=== PATIENT | male | born 1990 | race Two or more races ===

== ENCOUNTER 2019-03-30 12:44 | Emergency (ER) | payer BC ==
[2019-03-30] MEDS ORDERED: Bacitracin Oint 1 GM U/D Packet TOP ONE (13:06)
--- NOTE | 2019-03-30 13:09 | EDM.PDOC ---
ED HPI GENERAL MEDICAL PROBLEM - General Chief Complaint: Lower Extremity Injury/Pain Stated Complaint: INJURED RT FOOT Time Seen by Provider: 03/30/19 12:46 Source of Information: Reports: Patient History Limitations: Reports: No Limitations - History of Present Illness INITIAL COMMENTS - FREE TEXT/NARRATIVE: HISTORY AND PHYSICAL: History of present illness: Patient is a 28-year-old male who presents to the emergency room with complaints of right great toe pain after crush injury. He states a 45 pound weight had landed on his great toe resulting in soft tissue swelling and bleeding from the corner of the nail bed. Tetanus has been updated within the last 5 years. He denies any other bodily injury. Offers no systemic complaints. Review of systems: As per history of present illness and below otherwise all systems reviewed and negative. Past medical history: As per history of present illness and as reviewed below otherwise noncontributory. Surgical history: As per history of present illness and as reviewed below otherwise noncontributory. Social history: See social history for further information Family history: As per history of present illness and as reviewed below otherwise noncontributory. Physical exam: General: Well-developed and well-nourished 28-year-old male. Alert and oriented. Nontoxic-appearing and in no acute distress. HEENT: Atraumatic, normocephalic, pupils equal and reactive bilaterally, negative for conjunctival pallor or scleral icterus, mucous membranes moist, trachea midline. No drooling or trismus noted. No meningeal signs. No hot potato voice noted. Lungs: Clear to auscultation, breath sounds equal bilaterally. Heart: S1S2, regular rate and rhythm without overt murmur Abdomen: Soft, nondistended, nontender. Negative for masses or hepatosplenomegaly. Negative for costovertebral tenderness. Skin: See EXTREMITIES for details. Otherwise remaining skin is intact, warm, dry. No lesions or rashes noted. Extremities: Crush injury of the right great toe with minimal bleeding to corner of the nailbed. Nailbed is intact. He moves all extremities per self without difficulty or deficits. No ankle pain or tenderness. Neurovascular unremarkable. Neuro: Awake, alert, oriented. Cranial nerves II through XII unremarkable. Cerebellum unremarkable. Motor and sensory unremarkable throughout. Exam nonfocal. Notes: Wound care was provided. No area requiring sutures at this time. X-ray shows a tuft fracture of the distal first toe with soft tissue swelling. Shoe and crutches were given with education. We discussed the need for follow-up with podiatry. Supportive care measures were reviewed and discussed. Voices understanding and is agreeable to plan of care. Denies any further questions or concerns at this time. Diagnostics: X-ray Therapeutics: Wound care, bacitracin Post-Op shoe, crutches Prescription: None Impression: Tuft fracture right great toe Plan: 1. Rest, ice, elevate the affected extremity. Please wear the post-op shoe and use crutches as directed. 2. Tylenol and/or Ibuprofen as needed for pain management. [place] for moderate to severe pain. This medication may cause drowsiness so do not take it while driving or needing to be functioning at work. 3. Follow up with the Orthopedic provider or real estate professional as we discussed. Return to the ED as needed and as discussed. Definitive disposition and diagnosis as appropriate pending reevaluation and review of above. Right Foot Pain Score (Numeric/FACES): 4 - Related Data Allergies Allergy/AdvReac Type Severity Reaction Status Date / Time amoxicillin Allergy Rash Verified 03/30/19 12:59 Penicillins Allergy Rash Verified 03/30/19 12:59 Home Meds: Home Meds Acetaminophen/HYDROcodone [[place] 325-5 MG] 1 dose PO Q4H #20 tablet 03/30/19 [Rx ] Past Medical History - Past Health History Medical/Surgical History: Denies Medical/Surgical History - Infectious Disease History Infectious Disease History: Reports: Chicken Pox Social & Family History - Family History Family Medical History: Noncontributory - Tobacco Use Smoking Status *Q: Never Smoker - Caffeine Use Caffeine Use: Reports: Soda - Recreational Drug Use Recreational Drug Use: No Review of Systems - Review of Systems Review Of Systems: Comprehensive ROS is negative, except as noted in HPI. ED EXAM, GENERAL - Physical Exam Exam: See Below (See dictation) Course - Vital Signs Last Recorded V/S: Last Vital Signs Temp 96.5 F L 03/30/19 12:59 Pulse 78 03/30/19 12:59 Resp 17 03/30/19 12:59 BP 123/82 03/30/19 12:59 Pulse Ox 96 03/30/19 12:59 - Orders/Labs/Meds Orders: Active Orders 24 hr Category Date Time Status Communication Order [RC] STAT Care 03/30/19 13:06 Active DME for Discharge [COMM] Stat Oth 03/30/19 14:13 Ordered Meds: Medications Discontinued Medications Generic Name Dose Route Start Last Admin Trade Name Corby PRN Reason Stop Dose Admin Bacitracin 1 dose 03/30/19 13:06 Bacitracin Oint 1 Gm TOP 03/30/19 13:07 ONETIME ONE Departure - Departure Time of Disposition: 14:18 Disposition: Home, Self-Care 01 Clinical Impression: Fractured great toe Qualifiers: Encounter type: initial encounter Fracture type: closed Phalanx: distal Fracture alignment: nondisplaced Laterality: right Qualified Code(s): S92.424A - Nondisplaced fracture of distal phalanx of right great toe, initial encounter for closed fracture - Discharge Information Prescriptions: Acetaminophen/HYDROcodone [[place] 325-5 MG] 1 dose PO Q4H #20 tablet Instructions: Toe Fracture, [id number] Referrals: PCP,None [Primary Care Provider] - Forms: ED Department Discharge Additional Instructions: The following information is given to patients seen in the emergency department who are being discharged to home. This information is to outline your options for follow-up care. We provide all patients seen in our emergency department with a follow-up referral. The need for follow-up, as well as the timing and circumstances, are variable depending upon the specifics of your emergency department visit. If you don't have a primary care physician on staff, we will provide you with a referral. We always advise you to contact your personal physician following an emergency department visit to inform them of the circumstance of the visit and for follow-up with them and/or the need for any referrals to a consulting specialist. The emergency department will also refer you to a specialist when appropriate. This referral assures that you have the opportunity for follow-up care with a specialist. All of these measure are taken in an effort to provide you with optimal care, which includes your follow-up. Under all circumstances we always encourage you to contact your private physician who remains a resource for coordinating your care. When calling for follow-up care, please make the office aware that this follow-up is from your recent emergency room visit. If for any reason you are refused follow-up, please contact the [facility] at and asked to speak to the emergency department charge nurse. JORDANA [facility] [address] [place] [address] [facility] [address] [place] [address] 1. Rest, ice, elevate the affected extremity. Please wear the post-op shoe and use crutches as directed. 2. Tylenol and/or Ibuprofen as needed for pain management. [place] for moderate to severe pain. This medication may cause drowsiness so do not take it while driving or needing to be functioning at work. 3. Follow up with the Orthopedic provider or real estate professional as we discussed. Return to the ED as needed and as discussed. Sepsis Event Note - Evaluation Sepsis Screening Result: No Definite Risk - Focused Exam Vital Signs: Vital Signs Temp Pulse Resp BP Pulse Ox 03/30/19 12:59 96.5 F L 78 17 123/82 96 Date Exam was Performed: 03/30/19 Time Exam was Performed: 14:16 - My Orders Last 24 Hours: My Active Orders 03/30/19 13:06 Communication Order [RC] STAT 03/30/19 14:13 DME for Discharge [COMM] Stat - Assessment/Plan Last 24 Hours: My Active Orders 03/30/19 13:06 Communication Order [RC] STAT 03/30/19 14:13 DME for Discharge [COMM] Stat
--- NOTE | 2019-03-30 14:08 | CR ---
Right first toe: 3 views of the right first toe were obtained. Fracture is felt to be present within the tuft of the distal first toe. Soft tissue swelling is noted. No additional abnormality is appreciated. Impression: 1. Tuft fracture. 2. Soft tissue swelling. Diagnostic code #3 Study was dictated in [place] Standard Time
== END 2019-03-30 14:54 | disposition home or self-care (01) ==
LOC: MW.ED 12:44
DX: S92.424A Nondisplaced fracture of distal phalanx of right great toe, initial encounter for closed fracture (principal); Z88.0 Allergy status to penicillin; Z88.1 Allergy status to other antibiotic agents; W20.8XXA Other cause of strike by thrown, projected or falling object, initial encounter
CPT/HCPCS: 73660-26-T5; 73660-T5; 99283; 99283-25